=== PATIENT | female | born 1995 | race American Indian/Alaskan Native ===

== ENCOUNTER 2017-02-12 21:04 | Emergency (ER) | payer MEDICAID | END 2017-02-12 22:10 | disposition left against medical advice (07) | LOC: ED 21:04 | DX: O26.891 Other specified pregnancy related conditions, first trimester (principal); R10.9 Unspecified abdominal pain; Z53.21 Procedure and treatment not carried out due to patient leaving prior to being seen by health care provider ==

== ENCOUNTER 2017-05-19 17:26 | Emergency (ER) | payer MEDICAID ==
[2017-05-19 17:36] VITALS: BP 119/75
[2017-05-19] MEDS ORDERED: PROVENTIL IH ONE ×3 (17:43→23:58)
--- NOTE | 2017-05-19 18:00 | Emergency Department Report ---
Chief Complaint: Dyspnea/Respdistress Stated Complaint: 26 WKS ,SOB Time Seen by Provider: 05/19/17 17:42 - HPI History of Present Illness: pt c/o trouble breathing. pt denies hx of asthma, however, it is listed as pmh in pt's chart pt is 26 weeks - ROS Review of Systems: + movement + sob - Exam Vital Signs: Vital Signs 05/19/17 17:34 Temperature 98 F Pulse Rate 98 H Respiratory 18 Rate Blood Pressure 119/75 O2 Sat by Pulse 99 Oximetry Physical Exam: pt looks well, non toxic. pt with ins/ exp wheezing manuelito MSE screening note: Focused history and physical exam performed. Due to findings the following was ordered: [facility] ED Disposition for MSE Condition: Stable
[2017-05-19 21:56] LABS: Basophils % (Auto) 0.4 % (0.0-1.8); Eosinophils % (Auto) 2.9 % (0.0-4.3); Hematocrit 32.1 % (30.3-42.9); Hemoglobin 10.5 gm/dl (10.1-14.3); Mean Corpuscular HGB Conc 33 % (30-34); Mean Corpuscular Volume 79 fl (79-97); Platelet Count 170 K/mm3 (140-440); Red Blood Count 4.07 M/mm3 (3.65-5.03); Red Cell Distribution Width 14.6 % (13.2-15.2); White Blood Count 11.8 K/mm3 (4.5-11.0)
[2017-05-19 21:57] LABS: Mean Corpuscular Hemoglobin 26 pg (28-32)
--- NOTE | 2017-05-19 22:20 | Emergency Department Report ---
ED Asthma HPI - General Chief Complaint: Dyspnea/Respdistress Stated Complaint: 26 WKS ,SOB Time Seen by Provider: 05/19/17 17:42 Source: patient Mode of arrival: Ambulatory Limitations: No Limitations - History of Present Illness Initial Comments: This is a 21-year-old female well-nourished with nontoxic or ill in appearance but presents with wheezing and shortness of breath since Thursday. They stated she has a history of asthma with asthma exacerbations. Patient stated that this exacerbation is worse than her previous. Patient denies any contact with sick. Denies fever, chills, chest pain, stiff neck, headache, nausea, vomiting , dysuria, polyuria, foul odor, abdominal pain, numbness or tingling sensation. Patient stated has been diagnosed with asthma since young age. He denies any past medical history besides asthma. Denies drug allergies. Patient stated is currently 28 weeks . Patient stated has normal follow-up with no abnormalities. Patient denies any about. Denies vaginal bleeding or discharge. Patient stated he feels fetus moving. Denies complications. MD Complaint: "asthma attack", shortness of breath, wheezing -: Gradual, days(s) (2) Asthma History: childhood onset, history of frequent attac, history of prior ED visit Severity: mild Context: none known Associated Symptoms: none. denies: productive cough, dry cough, fever, chest pain, hemoptysis, leg edema, syncope - Related Data Current Asthma Therapy: none Previous Rx's Medication Instructions Recorded Last Taken Type Ferrous Sulfate [Feosol 325 MG tab] 325 mg PO BID #60 tablet 04/06/14 Unknown Rx Ibuprofen [Motrin 600 MG tab] 600 mg PO Q6HR PRN #30 tablet 04/06/14 Unknown Rx Vit-Fe Fumar-FA [ 1 each PO QDAY #30 tablet 04/06/14 Unknown Rx Vitamin] ALBUTEROL Inhaler [ProAir HFA 2 puff IH QID PRN #1 inhalation 05/19/17 Unknown Rx Inhaler] Allergies Allergy/AdvReac Type Severity Reaction Status Date / Time No Known Allergies Allergy Verified 11/17/13 01:19 ED Review of Systems ROS: Stated complaint: 26 WKS ,SOB Other details as noted in HPI Constitutional: denies: chills, fever Eyes: denies: eye pain, eye discharge, vision change ENT: denies: ear pain, throat pain Respiratory: denies: cough, shortness of breath, wheezing Cardiovascular: denies: chest pain, palpitations Endocrine: no symptoms reported Gastrointestinal: denies: abdominal pain, nausea, diarrhea Genitourinary: denies: urgency, dysuria, discharge Musculoskeletal: denies: back pain, joint swelling, arthralgia Skin: denies: rash, lesions Neurological: denies: headache, weakness, paresthesias Psychiatric: denies: anxiety, depression Hematological/Lymphatic: denies: easy bleeding, easy bruising ED Past Medical Hx - Past Medical History Hx Hypertension: No Hx Congestive Heart Failure: No Hx Diabetes: No Hx Deep Vein Thrombosis: No Hx Renal Disease: No Hx Sickle Cell Disease: No Hx Seizures: No Hx Asthma: Yes Hx COPD: No Hx HIV: No - Surgical History Past Surgical History?: No Additional Surgical History: vaginal - Social History Smoking Status: Never Smoker Substance Use Type: None - Medications Home Medications: Home Medications Medication Instructions Recorded Confirmed Last Taken Type Ferrous Sulfate [Feosol 325 MG tab] 325 mg PO BID #60 tablet 04/06/14 Unknown Rx Ibuprofen [Motrin 600 MG tab] 600 mg PO Q6HR PRN #30 tablet 04/06/14 Unknown Rx Vit-Fe Fumar-FA [ 1 each PO QDAY #30 tablet 04/06/14 Unknown Rx Vitamin] ALBUTEROL Inhaler [ProAir HFA 2 puff IH QID PRN #1 inhalation 05/19/17 Unknown Rx Inhaler] ED Physical Exam - General Limitations: No Limitations General appearance: alert, in no apparent distress - Head Head exam: Present: atraumatic, normocephalic, normal inspection - Eye Eye exam: Present: normal appearance, PERRL, EOMI. Absent: scleral icterus, conjunctival injection, nystagmus, periorbital swelling, periorbital tenderness Pupils: Present: normal accommodation - ENT ENT exam: Present: normal exam, normal orophraynx, mucous membranes moist, TM's normal bilaterally, normal external ear exam - Neck Neck exam: Present: normal inspection, full ROM. Absent: tenderness, meningismus, lymphadenopathy, thyromegaly - Respiratory Respiratory exam: Present: normal lung sounds bilaterally, wheezes (manuelito upper and lower lobes). Absent: respiratory distress, rales, rhonchi, stridor, chest wall tenderness, accessory muscle use, decreased breath sounds, prolonged expiratory - Cardiovascular Cardiovascular Exam: Present: regular rate, normal rhythm, normal heart sounds. Absent: bradycardia, tachycardia, irregular rhythm, systolic murmur, diastolic murmur, rubs, gallop - GI/Abdominal GI/Abdominal exam: Present: soft, normal bowel sounds. Absent: distended, tenderness, guarding, rebound, rigid, diminished bowel sounds - Rectal Rectal exam: Present: deferred - Extremities Exam Extremities exam: Present: normal inspection, full ROM, normal capillary refill. Absent: tenderness, pedal edema, joint swelling, calf tenderness - Back Exam Back exam: Present: normal inspection, full ROM. Absent: tenderness, CVA tenderness (R), CVA tenderness (L), muscle spasm, paraspinal tenderness, vertebral tenderness, rash noted - Neurological Exam Neurological exam: Present: alert, oriented X3, CN II-XII intact, normal gait - Psychiatric Psychiatric exam: Present: normal affect, normal mood - Skin Skin exam: Present: warm, dry, intact, normal color. Absent: rash - Other Other exam information: Normal heart rate present at 145. No abd pain. Denies cramping or vaginal bleeding. ED Course Vital Signs 05/19/17 17:34 Temperature 98 F Pulse Rate 98 H Respiratory 18 Rate Blood Pressure 119/75 O2 Sat by Pulse 99 Oximetry - Reevaluation(s) Reevaluation #1: 05/19/17 22:21 Patient received DuoNeb and patient stated she feels much better with shortness of breath subsiding. Patient stated she is able to breathe normally now. Patient is watching TV with no signs of distress noted. - Consultations Consultation #1: 05/19/17 22:24 Dr. Marquez was consulted about patient and elevated WBC. Agrees to the plan of care for CXR and d/c instructions. ED Medical Decision Making - Lab Data Result diagrams: 05/19/17 21:44 - Medical Decision Making Ed course: This is a 21-year-old female that presents with asthma exacerbation 1- abdomen physical exam, patient received a chest x-ray due to elevated white blood cell count and tachycardia. Dr. Marquez has been consulted and agrees to the plan of care and ED as well as discharge instructions. 2- patient received DuoNeb prior to interview. During interview patient stated she feels much better with with shortness of breath subsiding and decreased wheezing. 3- patient received albuterol at the time of discharge and was instructed to follow-up with a primary care doctor in 24 hours. 4- heart tone is normal at 145. 5- at time time of discharge, the patient does not seem toxic or ill in appearance. No acute signs of distress noted. Patient agrees to discharge treatment plan of care. No further questions noted by the patient. Critical care attestation.: If time is entered above; I have spent that time in minutes in the direct care of this critically ill patient, excluding procedure time. ED Disposition Clinical Impression: Asthma exacerbation Disposition: DC-01 TO HOME OR SELFCARE Is pt being admited?: No Does the pt Need Aspirin: No Condition: Stable Instructions: Asthma (ED), Albuterol (By breathing) Additional Instructions: Take albuterol as prescribed as needed. Follow-up with your primary care doctor in 24 hours or if symptoms worsen and unable to breathe return back to emergency room as soon as possible. Prescriptions: ALBUTEROL Inhaler [ProAir HFA Inhaler] 2 puff IH QID PRN #1 inhalation PRN Reason: Shortness Of Breath Referrals: [facility] [Outside] - 3-5 Days [facility] [Outside] - 3-5 Days PRIMARY CAREMD [Primary Care Provider] - 05/20/17 EVAN TIAN JR, MD [Staff Physician] - 05/20/17 Forms: Work/School Release Form(ED)
[2017-05-19 23:03] LABS: Anion Gap 16 mmol/L; Blood Urea Nitrogen 4 mg/dL (7-17); Calcium 8.5 mg/dL (8.4-10.2); Carbon Dioxide 25 mmol/L (22-30); Chloride 101.9 mmol/L (98-107); Glucose 74 mg/dL (65-100); Potassium 3.5 mmol/L (3.6-5.0); Sodium 139 mmol/L (137-145)
--- NOTE | 2017-05-19 23:08 | XRay Report ---
FINAL REPORT EXAM: XR CHEST ROUTINE 2V HISTORY: sob with wheezing TECHNIQUE: 2 views of the chest. PRIORS: None. FINDINGS: The cardiomediastinal silhouette appears normal. The lungs are clear. There is right convex scoliosis centered at the lower thoracic level. IMPRESSION: No evidence of acute cardiopulmonary disease
== END 2017-05-20 01:21 | disposition home or self-care (01) ==
LOC: ED 17:26
DX: O99.512 Diseases of the respiratory system complicating pregnancy, second trimester (principal); J45.901 Unspecified asthma with (acute) exacerbation; Z3A.26 26 weeks gestation of pregnancy
CPT/HCPCS: 36415; 71020; 80048; 84702; 85025; 94640; 99284

== ENCOUNTER 2017-08-17 22:35 | Outpatient (CLI) | payer MEDICAID | END 2017-08-18 00:53 | disposition home or self-care (01) | LOC: TRG 22:35 | PROVIDERS: ATTEND Obstetrics & Gynecology Gynecology | DX: O47.1 False labor at or after 37 completed weeks of gestation (principal); Z3A.39 39 weeks gestation of pregnancy ==

== ENCOUNTER 2017-08-19 23:46 | Outpatient (CLI) | payer MEDICAID ==
[2017-08-20 00:04] VITALS: BP 111/78
[2017-08-20] MEDS ORDERED: LACTATED RINGERS 1,000 ML IV ONE (00:45)
== END 2017-08-20 01:50 | disposition home or self-care (01) ==
LOC: TRG 23:46
PROVIDERS: ATTEND Obstetrics & Gynecology
DX: O62.9 Abnormality of forces of labor, unspecified (principal); O47.1 False labor at or after 37 completed weeks of gestation; O26.893 Other specified pregnancy related conditions, third trimester; M54.9 Dorsalgia, unspecified; Z3A.39 39 weeks gestation of pregnancy
CPT/HCPCS: 59025; 96360; J7120

== ENCOUNTER 2017-08-20 20:16 | Outpatient (CLI) | payer MEDICAID ==
[2017-08-20 20:47] VITALS: BP 114/69
== END 2017-08-20 22:17 | disposition home or self-care (01) ==
LOC: TRG 20:16
PROVIDERS: ATTEND Obstetrics & Gynecology
DX: O47.1 False labor at or after 37 completed weeks of gestation (principal); Z3A.39 39 weeks gestation of pregnancy
CPT/HCPCS: 59025

== ENCOUNTER 2017-08-21 22:42 | Outpatient (CLI) | payer MEDICAID ==
[2017-08-21 22:53] VITALS: BP 120/75
== END 2017-08-21 23:53 | disposition home or self-care (01) ==
LOC: TRG 22:42
PROVIDERS: ATTEND Obstetrics & Gynecology Gynecology
DX: O47.1 False labor at or after 37 completed weeks of gestation (principal); Z3A.39 39 weeks gestation of pregnancy
CPT/HCPCS: 59025

== ENCOUNTER 2017-08-23 13:45 | Inpatient (IN) | payer MEDICAID ==
[2017-08-23] MEDS ORDERED: LACTATED RINGERS 1,000 ML IV ONE (17:07)
--- NOTE | 2017-08-23 19:06 | History and Physical Report ---
History of Present Illness Date of examination: 08/23/17 Date of admission: 08/23/17 13:46 Chief complaint: Painful contractions History of present illness: 21-year-old at 39+6 weeks presents in active labor, she is a [facility] patient. Medical care has been unremarkable per patient she is GBS negative Past History Past Medical History: no pertinent history Past Surgical History: no surgical history REHABILITATION LIAISON History: denies: chlamydia, hepatitis B, hepatitis C, herpes, HIV, trichomonas Social history: single, full code. denies: smoking, alcohol abuse, prescription drug abuse, IV drug use - Obstetrical History Expected Date of Delivery: 08/24/17 Actual Gestation: 39 Week(s) 6 Day(s) : 2 Para: 1 Medications and Allergies Allergies Allergy/AdvReac Type Severity Reaction Status Date / Time No Known Allergies Allergy Verified 11/17/13 01:19 Home Medications Medication Instructions Recorded Confirmed Last Taken Type Ferrous Sulfate [Feosol 325 MG tab] 325 mg PO BID #60 tablet 04/06/14 08/19/17 10:00 Rx Ibuprofen [Motrin 600 MG tab] 600 mg PO Q6HR PRN #30 tablet 04/06/14 1 Day Ago Rx Vit-Fe Fumar-FA [ 1 each PO QDAY #30 tablet 04/06/14 08/20/17 1 Day Ago Rx Vitamin] 1 tablet ALBUTEROL Inhaler [ProAir HFA 2 puff IH QID PRN #1 inhalation 05/19/17 Unknown Rx Inhaler] Review of Systems Constitutional: no fever, no chills Cardiovascular: no chest pain, no syncope, no lightheadedness, no shortness of breath, no dyspnea on exertion, no paroxysmal nocturnal dyspnea, no high blood pressure Respiratory: no shortness of breath, no dyspnea on exertion Gastrointestinal: abdominal pain, no nausea, no vomiting Genitourinary: contractions, no vaginal bleeding, no vaginal discharge, no leakage of fluid - Vital Signs Vital signs: Vital Signs Pulse Pulse Ox 83 100 08/23/17 13:59 08/23/17 13:59 Temp Pulse Resp BP Pulse Ox 98.4 F 91 H 20 114/73 99 08/23/17 18:47 08/23/17 19:00 08/23/17 18:47 08/23/17 18:47 08/23/17 19:00 - Physical Exam Cardiovascular: Regular rate, Normal S1, Normal S2 Lungs: Positive: Clear to auscultation, Normal air movement Abdomen: Positive: normal appearance, soft. Negative: distention, tenderness, guarding, rigidity Genitourinary (Female): Positive: normal external genitalia Uterus: Positive: enlarged (EFW ~ 3400). Negative: tender Extremities: Positive: normal - Obstetrical FHR: category 1 Cervical Dilatation: 4 (per RN ) station: -3 Results All other labs normal. Assessment and Plan A: 21-year-old 001 at 39+6 weeks in active labor -Category 1 tracing P: -Admit -Routine labs -Epidural prn -Anticipate - Patient Problems (1) 39 weeks gestation of Current Visit: Yes Status: Acute (2) Active labor at term Current Visit: Yes Status: Acute
[2017-08-23] MEDS ORDERED: BRETHINE SUB-Q PRN (19:08)
[2017-08-23] MEDS ORDERED: ePHEDrine SULFATE IV PRN ×2 (19:08→20:14)
[2017-08-23] MEDS ORDERED: XYLOCAINE 2% INFILTRATI ONE (19:08)
[2017-08-23] MEDS ORDERED: MINERAL OIL PO PRN (19:08)
[2017-08-23] MEDS ORDERED: SUBLIMAZE IV PRN (19:08)
[2017-08-23] MEDS ORDERED: ZOFRAN IV PRN (19:08)
[2017-08-23] MEDS ORDERED: BRETHINE IVP PRN (19:08)
[2017-08-23 19:38] LABS: Basophils % (Auto) 0.5 % (0.0-1.8); Eosinophils % (Auto) 0.4 % (0.0-4.3); Hematocrit 38.4 % (30.3-42.9); Hemoglobin 12.4 gm/dl (10.1-14.3); Mean Corpuscular HGB Conc 32 % (30-34); Mean Corpuscular Volume 77 fl (79-97); Platelet Count 182 K/mm3 (140-440); Red Blood Count 4.97 M/mm3 (3.65-5.03); Red Cell Distribution Width 18.3 % (13.2-15.2); White Blood Count 13.2 K/mm3 (4.5-11.0)
[2017-08-23 19:41] LABS: Mean Corpuscular Hemoglobin 25 pg (28-32)
[2017-08-23] MEDS ORDERED: ePHEDrine SULFATE ONE (19:50)
[2017-08-23] MEDS: LACTATED RINGERS 1,000 ML IV SCH ×2 (19:56→21:20)
[2017-08-23] MEDS ORDERED: PITOCin/NS 30 UNIT/500ML 30 UNITS/500 ML BAG IV SCH (20:00)
--- NOTE | 2017-08-23 20:13 | Anesthesia Consultation ---
Anesthesia Consult and Med Hx Date of service: 08/23/17 - Airway Anesthetic Teeth Evaluation: Good ROM Head & Neck: Adequate Mental/Hyoid Distance: Adequate Mallampati Class: Class II Intubation Access Assessment: Probably Good - Pulmonary Exam CTA: Yes - Cardiac Exam Cardiac Exam: RRR - Pre-Operative Health Status ASA Pre-Surgery Classification: ASA2 Proposed Anesthetic Plan: Epidural - Pulmonary Hx Asthma: Yes (pt has rescue inhaler, only exacerbation happened early in ) COPD: No Hx Pneumonia: No - Cardiovascular System Hx Hypertension: No - Central Nervous System Hx Seizures: No Hx Psychiatric Problems: No - Endocrine Hx Renal Disease: No Hx End Stage Renal Disease: No Hx Hypothyroidism: No Hx Hyperthyroidism: No - Hematic Hx Anemia: No Hx Sickle Cell Disease: No - Other Systems Hx Alcohol Use: No
[2017-08-23] MEDS ORDERED: NARCAN 2 MG/2 ML IV PRN (20:14)
[2017-08-23] MEDS ORDERED: fentaNYL-BUPIV 2 MCG/ML-0.125% 200 MCG/100 ML BAG EPIDURAL SCH (21:00)
[2017-08-23] MEDS: PITOCin/NS 30 UNIT/500ML 30 UNITS/500 ML BAG IV SCH ×2 (21:17→22:10)
--- NOTE | 2017-08-23 22:04 | Progress Note ---
Assessment and Plan A: 21-year-old 001 at 39+6 weeks in active labor -Category 1 tracing P: -AROMed w/ clear fluid -Continue present care -Anticipate - Patient Problems (1) 39 weeks gestation of Current Visit: Yes Status: Acute (2) Active labor at term Current Visit: Yes Status: Acute Subjective - Subjective Date of service: 08/23/17 Interval history: 21-year-old at 39+6 weeks presents in active labor, she is a [facility] patient. Medical care has been unremarkable per patient she is GBS negative Patient reports: new complaints, contractions Objective - Vital Signs Vital Signs: Vital Signs - 12hr 08/23/17 08/23/17 08/23/17 13:59 14:00 14:04 Temperature Pulse Rate 83 84 82 Respiratory Rate Blood Pressure 117/76 Blood Pressure [Left] O2 Sat by Pulse 100 99 Oximetry 08/23/17 08/23/17 08/23/17 14:09 14:14 14:19 Temperature Pulse Rate 75 78 79 Respiratory Rate Blood Pressure Blood Pressure [Left] O2 Sat by Pulse 98 98 99 Oximetry 08/23/17 08/23/17 08/23/17 14:24 14:29 14:34 Temperature Pulse Rate 79 80 79 Respiratory Rate Blood Pressure Blood Pressure [Left] O2 Sat by Pulse 99 99 99 Oximetry 08/23/17 08/23/17 08/23/17 14:39 14:42 18:47 Temperature 98.4 F Pulse Rate 80 83 94 H Respiratory 20 Rate Blood Pressure Blood Pressure 114/73 [Left] O2 Sat by Pulse 100 81 L 97 Oximetry 08/23/17 08/23/17 08/23/17 19:00 19:05 19:10 Temperature Pulse Rate 91 H 101 H 90 Respiratory Rate Blood Pressure Blood Pressure [Left] O2 Sat by Pulse 99 100 99 Oximetry 08/23/17 08/23/17 08/23/17 19:15 19:20 19:27 Temperature Pulse Rate 96 H 84 83 Respiratory Rate Blood Pressure Blood Pressure [Left] O2 Sat by Pulse 99 100 100 Oximetry 08/23/17 08/23/17 08/23/17 19:30 19:32 19:40 Temperature 98.3 F Pulse Rate 88 89 Respiratory 18 Rate Blood Pressure 124/68 Blood Pressure [Left] O2 Sat by Pulse 100 Oximetry 08/23/17 08/23/17 08/23/17 19:41 19:46 19:51 Temperature Pulse Rate 92 H 84 85 Respiratory Rate Blood Pressure Blood Pressure [Left] O2 Sat by Pulse 99 100 100 Oximetry 08/23/17 08/23/17 08/23/17 19:56 19:59 20:01 Temperature Pulse Rate 100 H 102 H 100 H Respiratory Rate Blood Pressure 123/67 116/61 Blood Pressure [Left] O2 Sat by Pulse 100 100 Oximetry 08/23/17 08/23/17 08/23/17 20:03 20:05 20:06 Temperature Pulse Rate 109 H 97 H 96 H Respiratory Rate Blood Pressure 118/61 127/64 Blood Pressure [Left] O2 Sat by Pulse 100 Oximetry 08/23/17 08/23/17 08/23/17 20:07 20:09 20:11 Temperature Pulse Rate 88 88 86 Respiratory Rate Blood Pressure 119/64 116/56 130/62 Blood Pressure [Left] O2 Sat by Pulse Oximetry 08/23/17 08/23/17 08/23/17 20:13 20:15 20:17 Temperature Pulse Rate 88 92 H 87 Respiratory Rate Blood Pressure 121/66 112/60 113/59 Blood Pressure [Left] O2 Sat by Pulse Oximetry 08/23/17 08/23/17 08/23/17 20:19 20:23 20:25 Temperature Pulse Rate 97 H 109 H 101 H Respiratory Rate Blood Pressure 115/59 Blood Pressure [Left] O2 Sat by Pulse 100 76 L Oximetry 08/23/17 08/23/17 08/23/17 20:27 20:28 20:32 Temperature Pulse Rate 89 90 91 H Respiratory Rate Blood Pressure 130/57 113/60 Blood Pressure [Left] O2 Sat by Pulse 97 Oximetry 08/23/17 08/23/17 08/23/17 20:33 20:38 20:41 Temperature Pulse Rate 93 H 92 H 62 Respiratory Rate Blood Pressure Blood Pressure [Left] O2 Sat by Pulse 99 100 75 L Oximetry 08/23/17 08/23/17 08/23/17 20:43 20:49 20:52 Temperature Pulse Rate 93 H 96 H 91 H Respiratory Rate Blood Pressure Blood Pressure [Left] O2 Sat by Pulse 99 99 74 L Oximetry 08/23/17 08/23/17 08/23/17 20:54 20:59 21:04 Temperature Pulse Rate 99 H 90 93 H Respiratory Rate Blood Pressure 137/66 Blood Pressure [Left] O2 Sat by Pulse 100 100 100 Oximetry 08/23/17 08/23/17 08/23/17 21:05 21:09 21:13 Temperature Pulse Rate 93 H 90 98 H Respiratory Rate Blood Pressure Blood Pressure [Left] O2 Sat by Pulse 51 L 100 90 Oximetry 08/23/17 08/23/17 08/23/17 21:14 21:18 21:19 Temperature Pulse Rate 95 H 95 H Respiratory Rate Blood Pressure Blood Pressure [Left] O2 Sat by Pulse 86 68 L 67 L Oximetry 08/23/17 08/23/17 08/23/17 21:20 21:34 21:48 Temperature Pulse Rate 90 83 86 Respiratory Rate Blood Pressure 141/64 103/58 112/62 Blood Pressure [Left] O2 Sat by Pulse Oximetry - Exam FHR: category 1 Cervical Dilatation: 7 station: -2 - Labs Labs: Abnormal Labs 08/23/17 19:00 WBC 13.2 H MCV 77 L MCH 25 L RDW 18.3 H [place] % (Auto) 7.9 H Bryan # 1.0 H Seg Neutrophils % 77.0 H Seg Neutrophils # 10.1 H Laboratory Results - last 24 hr 08/23/17 08/23/17 19:00 19:25 WBC 13.2 H RBC 4.97 Hgb 12.4 Hct 38.4 MCV 77 L MCH 25 L MCHC 32 RDW 18.3 H Plt Count 182 Lymph % (Auto) 14.2 [place] % (Auto) 7.9 H Eos % (Auto) 0.4 Baso % (Auto) 0.5 Lymph # 1.9 Bryan # 1.0 H Eos # 0.1 Baso # 0.1 Seg Neutrophils % 77.0 H Seg Neutrophils # 10.1 H Blood Type O POSITIVE Antibody Screen Negative
--- NOTE | 2017-08-24 00:03 | Progress Note ---
Assessment and Plan A: 21-year-old 001 at 39+6 weeks in active labor -Category 1 tracing P: -Continue present care -Anticipate - Patient Problems (1) 39 weeks gestation of Current Visit: Yes Status: Acute (2) Active labor at term Current Visit: Yes Status: Acute Subjective - Subjective Date of service: 08/24/17 Interval history: fully dilated Patient reports: new complaints, contractions Objective - Vital Signs Vital Signs: Vital Signs - 12hr 08/23/17 08/23/17 08/23/17 13:59 14:00 14:04 Temperature Pulse Rate 83 84 82 Respiratory Rate Blood Pressure 117/76 Blood Pressure [Left] O2 Sat by Pulse 100 99 Oximetry 08/23/17 08/23/17 08/23/17 14:09 14:14 14:19 Temperature Pulse Rate 75 78 79 Respiratory Rate Blood Pressure Blood Pressure [Left] O2 Sat by Pulse 98 98 99 Oximetry 08/23/17 08/23/17 08/23/17 14:24 14:29 14:34 Temperature Pulse Rate 79 80 79 Respiratory Rate Blood Pressure Blood Pressure [Left] O2 Sat by Pulse 99 99 99 Oximetry 08/23/17 08/23/17 08/23/17 14:39 14:42 18:47 Temperature 98.4 F Pulse Rate 80 83 94 H Respiratory 20 Rate Blood Pressure Blood Pressure 114/73 [Left] O2 Sat by Pulse 100 81 L 97 Oximetry 08/23/17 08/23/17 08/23/17 19:00 19:05 19:10 Temperature Pulse Rate 91 H 101 H 90 Respiratory Rate Blood Pressure Blood Pressure [Left] O2 Sat by Pulse 99 100 99 Oximetry 08/23/17 08/23/17 08/23/17 19:15 19:20 19:27 Temperature Pulse Rate 96 H 84 83 Respiratory Rate Blood Pressure Blood Pressure [Left] O2 Sat by Pulse 99 100 100 Oximetry 08/23/17 08/23/17 08/23/17 19:30 19:32 19:40 Temperature 98.3 F Pulse Rate 88 89 Respiratory 18 Rate Blood Pressure 124/68 Blood Pressure [Left] O2 Sat by Pulse 100 Oximetry 08/23/17 08/23/17 08/23/17 19:41 19:46 19:51 Temperature Pulse Rate 92 H 84 85 Respiratory Rate Blood Pressure Blood Pressure [Left] O2 Sat by Pulse 99 100 100 Oximetry 08/23/17 08/23/17 08/23/17 19:56 19:59 20:01 Temperature Pulse Rate 100 H 102 H 100 H Respiratory Rate Blood Pressure 123/67 116/61 Blood Pressure [Left] O2 Sat by Pulse 100 100 Oximetry 08/23/17 08/23/17 08/23/17 20:03 20:05 20:06 Temperature Pulse Rate 109 H 97 H 96 H Respiratory Rate Blood Pressure 118/61 127/64 Blood Pressure [Left] O2 Sat by Pulse 100 Oximetry 08/23/17 08/23/17 08/23/17 20:07 20:09 20:11 Temperature Pulse Rate 88 88 86 Respiratory Rate Blood Pressure 119/64 116/56 130/62 Blood Pressure [Left] O2 Sat by Pulse Oximetry 08/23/17 08/23/17 08/23/17 20:13 20:15 20:17 Temperature Pulse Rate 88 92 H 87 Respiratory Rate Blood Pressure 121/66 112/60 113/59 Blood Pressure [Left] O2 Sat by Pulse Oximetry 08/23/17 08/23/17 08/23/17 20:19 20:23 20:25 Temperature Pulse Rate 97 H 109 H 101 H Respiratory Rate Blood Pressure 115/59 Blood Pressure [Left] O2 Sat by Pulse 100 76 L Oximetry 08/23/17 08/23/17 08/23/17 20:27 20:28 20:32 Temperature Pulse Rate 89 90 91 H Respiratory Rate Blood Pressure 130/57 113/60 Blood Pressure [Left] O2 Sat by Pulse 97 Oximetry 08/23/17 08/23/17 08/23/17 20:33 20:38 20:41 Temperature Pulse Rate 93 H 92 H 62 Respiratory Rate Blood Pressure Blood Pressure [Left] O2 Sat by Pulse 99 100 75 L Oximetry 08/23/17 08/23/17 08/23/17 20:43 20:49 20:52 Temperature Pulse Rate 93 H 96 H 91 H Respiratory Rate Blood Pressure Blood Pressure [Left] O2 Sat by Pulse 99 99 74 L Oximetry 08/23/17 08/23/17 08/23/17 20:54 20:59 21:04 Temperature Pulse Rate 99 H 90 93 H Respiratory Rate Blood Pressure 137/66 Blood Pressure [Left] O2 Sat by Pulse 100 100 100 Oximetry 08/23/17 08/23/17 08/23/17 21:05 21:09 21:13 Temperature Pulse Rate 93 H 90 98 H Respiratory Rate Blood Pressure Blood Pressure [Left] O2 Sat by Pulse 51 L 100 90 Oximetry 08/23/17 08/23/17 08/23/17 21:14 21:18 21:19 Temperature Pulse Rate 95 H 95 H Respiratory Rate Blood Pressure Blood Pressure [Left] O2 Sat by Pulse 86 68 L 67 L Oximetry 08/23/17 08/23/17 08/23/17 21:20 21:34 21:48 Temperature Pulse Rate 90 83 86 Respiratory Rate Blood Pressure 141/64 103/58 112/62 Blood Pressure [Left] O2 Sat by Pulse Oximetry 08/23/17 08/23/17 08/23/17 22:08 22:19 22:34 Temperature 98.3 F Pulse Rate 97 H 91 H Respiratory Rate Blood Pressure 119/53 110/57 Blood Pressure [Left] O2 Sat by Pulse Oximetry 08/23/17 08/23/17 08/23/17 22:48 23:03 23:20 Temperature Pulse Rate 110 H 108 H 102 H Respiratory Rate Blood Pressure 110/58 108/58 119/65 Blood Pressure [Left] O2 Sat by Pulse Oximetry 08/23/17 08/23/17 23:35 23:49 Temperature Pulse Rate 86 97 H Respiratory Rate Blood Pressure 108/57 137/60 Blood Pressure [Left] O2 Sat by Pulse Oximetry - Exam FHR: category 1 Cervical Dilatation: 10 station: 0 - Labs Labs: Abnormal Labs 08/23/17 19:00 WBC 13.2 H MCV 77 L MCH 25 L RDW 18.3 H [place] % (Auto) 7.9 H [place] # 1.0 H Seg Neutrophils % 77.0 H Seg Neutrophils # 10.1 H Laboratory Results - last 24 hr 08/23/17 08/23/17 19:00 19:25 WBC 13.2 H RBC 4.97 Hgb 12.4 Hct 38.4 MCV 77 L MCH 25 L MCHC 32 RDW 18.3 H Plt Count 182 Lymph % (Auto) 14.2 [place] % (Auto) 7.9 H Eos % (Auto) 0.4 Baso % (Auto) 0.5 Lymph # 1.9 [place] # 1.0 H Eos # 0.1 Baso # 0.1 Seg Neutrophils % 77.0 H Seg Neutrophils # 10.1 H Blood Type O POSITIVE Antibody Screen Negative
[2017-08-24] MEDS: PITOCin/NS 20 UNIT/1000ML DRIP 20 UNITS/1,000 ML BAG IV SCH ×2 (01:26→03:02)
[2017-08-24] MEDS ORDERED: METHERGINE IM ONE (01:30)
--- NOTE | 2017-08-24 01:50 | Procedure Note ---
OB Delivery Note - Delivery Date of Delivery: 08/24/17 Surgeon: YASMIN DONOVAN Estimated blood loss: 300cc - Vaginal Delivery presentation: vertex Delivery position: OA Delivery induction: none Delivery augmentation: rupture of membranes, pitocin Delivery monitor: external FHT, external uterine Route of delivery: Delivery placenta: spontaneous Delivery cord: 3 umbilical vessels Episiotomy: none Delivery laceration: 2nd degree (Unsure due to vulva edema) Anesthesia: epidural Delivery comments: Normal vaginal delivery over intact perineum. Patient's vulva markedly swollen , 2nd degree midline laceration could not be repaired due to above. Patient with noted oozing from suture sites. Vagina packed with vag pack and Aguilera placed. We'll remove vag pack later in a.m. - A at 1 minute: 8 at 5 minutes: 9 Infant Gender: Male (time of delivery was 1:20 AM, infant weight 6 lbs. 12 oz. or 3067 g)
[2017-08-24] MEDS ORDERED: DULCOLAX PR PRN (01:52)
[2017-08-24] MEDS ORDERED: PHENERGAN PR PRN (01:52)
[2017-08-24] MEDS ORDERED: BENADRYL PO PRN (01:52)
[2017-08-24] MEDS ORDERED: TYLENOL PO PRN (01:52)
[2017-08-24] MEDS ORDERED: ZOFRAN IV PRN (01:52)
[2017-08-24] MEDS ORDERED: LANSINOH TP PRN (01:52)
[2017-08-24] MEDS ORDERED: MILK OF MAGNESIA PO PRN (01:52)
[2017-08-24] MEDS ORDERED: DERMOPLAST TP PRN (01:52)
[2017-08-24] MEDS ORDERED: ANUCORT-HC PR PRN (01:52)
[2017-08-24] MEDS ORDERED: NORCO 5/325 PO PRN (01:52)
[2017-08-24] MEDS ORDERED: METHERGINE IM PRN (01:52)
[2017-08-24] MEDS ORDERED: PHENERGAN PO PRN (01:52)
[2017-08-24] MEDS ORDERED: SODIUM CHLORIDE FLUSH SYRINGE 10 ML IV NR (02:00)
[2017-08-24 02:09] LABS: Urine Drugs of Abuse Note Disclamer
[2017-08-24] MEDS ORDERED: PITOCin/NS 20 UNIT/1000ML DRIP 20,000 MILLIUNITS/1,000 ML BAG IV ONE (02:41)
[2017-08-24] MEDS: TUCKS PAD TP PRN (03:55)
[2017-08-24] MEDS: SENOKOT S PO SCH (06:01)
[2017-08-24] MEDS: MOTRIN PO SCH ×3 (06:04→18:14)
[2017-08-24] MEDS: FEOSOL PO SCH ×2 (10:01→22:27)
[2017-08-24] MEDS: PRENATAL VITAMIN PO SCH (10:01)
[2017-08-24] MEDS: COLACE PO SCH ×2 (10:13→22:27)
--- NOTE | 2017-08-24 10:28 | Event Note ---
Date: 08/24/17 Vaginal pack removed without difficulty. Aguilera also removed. Pt feeling well without complaints.
[2017-08-24 14:12] LABS: Hematocrit 36.4 % (30.3-42.9); Hemoglobin 11.3 gm/dl (10.1-14.3)
[2017-08-25] MEDS: MOTRIN PO SCH ×4 (00:14→17:50)
[2017-08-25] MEDS ORDERED: M-M-R II VACCINE SUB-Q ONE (06:00)
[2017-08-25] MEDS ORDERED: BOOSTRIX IM ONE (06:05)
--- NOTE | 2017-08-25 08:38 | Progress Note ---
Assessment and Plan - Patient Problems (1) Status post normal vaginal delivery Onset Date: 08/25/17 Current Visit: No Status: Resolved Plan to address problem: A: S/P - PPD #1 Doing well P: May go home tomorrow Subjective - Subjective Date of service: 08/25/17 Principal diagnosis: s/p - PPD #1 Interval history: Pt is feeling well without complaints. Bleeding improved. Patient reports: appetite normal, voiding normally, pain well controlled, flatus , ambulating normally [place]: doing well, bottle feeding Objective - Vital Signs Latest vital signs: Vital Signs Temp Pulse Resp BP 08/25/17 05:27 16 08/25/17 01:14 16 08/25/17 00:14 16 08/24/17 23:31 97.6 F 83 18 109/70 08/24/17 16:00 98.4 F 72 18 100/56 08/24/17 12:14 98.8 F 80 18 104/71 Intake and Output 08/24/17 08/25/17 08/25/17 22:59 06:59 14:59 Intake Total 240 360 Output Total 800 Balance -560 360 Intake: Oral 240 Intake, Free Water 360 Output: Urine 800 Void 800 Other: Total, Intake Amount 240 Total, Output Amount 800 # Voids Void 1 - Exam Breasts: Present: deferred Cardiovascular: Present: Regular rate Lungs: Present: Clear to auscultation Abdomen: Present: normal appearance, soft Uterus: Present: normal, firm, fundal height below umbilicus Extremities: Present: normal - Labs Labs: Laboratory Tests 08/23/17 08/23/17 08/24/17 19:00 19:25 02:00 WBC 13.2 H RBC 4.97 Hgb 12.4 Hct 38.4 MCV 77 L MCH 25 L MCHC 32 RDW 18.3 H Plt Count 182 Lymph % (Auto) 14.2 Reagan % (Auto) 7.9 H Eos % (Auto) 0.4 Baso % (Auto) 0.5 Lymph # 1.9 Reagan # 1.0 H Eos # 0.1 Baso # 0.1 Seg Neutrophils % 77.0 H Seg Neutrophils # 10.1 H Urine Opiates Screen Presumptive negative Urine Methadone Screen Presumptive negative Ur Barbiturates Screen Presumptive negative Ur Phencyclidine Scrn Presumptive negative Ur Amphetamines Screen Presumptive negative U Benzodiazepines Scrn Presumptive negative Urine Cocaine Screen Presumptive negative U Marijuana (THC) Screen Presumptive negative Drugs of Abuse Note Disclamer Blood Type O POSITIVE Antibody Screen Negative 08/24/17 13:38 WBC RBC Hgb 11.3 Hct 36.4 MCV MCH MCHC RDW Plt Count Lymph % (Auto) Reagan % (Auto) Eos % (Auto) Baso % (Auto) Lymph # Reagan # Eos # Baso # Seg Neutrophils % Seg Neutrophils # Urine Opiates Screen Urine Methadone Screen Ur Barbiturates Screen Ur Phencyclidine Scrn Ur Amphetamines Screen U Benzodiazepines Scrn Urine Cocaine Screen U Marijuana (THC) Screen Drugs of Abuse Note Blood Type Antibody Screen
--- NOTE | 2017-08-25 09:49 | Discharge Summary ---
Providers - Providers Date of Admission: 08/23/17 13:46 Date of discharge: 08/26/17 Attending physician: YASMIN DONOVAN Primary care physician: YASMIN DONOVAN Hospitalization Reason for admission: active labor, IUP at term Delivery: Episiotomy: none Laceration: vaginal side wall, 2nd degree Other procedures: none complications: none Discharge diagnosis: IUP at term delivered baby: male Hospital course: Unremarkable. Condition at discharge: Good Disposition: [id number] TO HOME OR SELFCARE - Discharge Diagnoses (1) Status post normal vaginal delivery Status: Resolved Plan - Discharge Medications Prescriptions: Ibuprofen [Motrin 600 MG tab] 600 mg PO Q8H PRN #30 tablet PRN Reason: Pain Multivitamin with Iron [Multivitamins with Iron] 1 each PO DAILY #30 tablet - Provider Discharge Summary Activity: routine, no sex for 6 weeks, no heavy lifting 4 weeks, no strenuous exercise Diet: routine Instructions: routine Additional instructions: [] Smoking cessation referral if applicable(refer to patient education folder for contact #) [] Refer to [facility]'s [facility] Booklet Call your doctor immediately for: * Fever > 100.5 * Heavy vaginal bleeding ( >1 pad per hour) * Severe persistent headache * Shortness of breath * Reddened, hot, painful area to leg or breast * Drainage or odor from incision. * Keep incision clean and dry at all times and follow doctor's instructions regarding bathing/showering - Follow up plan Follow up: YASMIN DONOVAN MD [Primary Care Provider] - 14 Days
[2017-08-25] MEDS: COLACE PO SCH (12:06)
[2017-08-25] MEDS: FEOSOL PO SCH (12:08)
[2017-08-25] MEDS: PRENATAL VITAMIN PO SCH (12:08)
[2017-08-25] MEDS: SENOKOT S PO SCH (17:50)
[2017-08-26] MEDS: MOTRIN PO SCH ×2 (00:08→05:27)
[2017-08-26] MEDS: COLACE PO SCH ×2 (00:08→10:26)
[2017-08-26] MEDS: FEOSOL PO SCH ×2 (00:09→10:25)
[2017-08-26] MEDS: SENOKOT S PO SCH ×2 (01:33→05:28)
[2017-08-26] MEDS: TUCKS PAD TP PRN (05:28)
[2017-08-26] MEDS: PRENATAL VITAMIN PO SCH (10:26)
[2017-08-26 15:59] VITALS: BP 118/76
== END 2017-08-26 15:10 | disposition home or self-care (01) | DRG 775 ==
LOC: TRG 13:45 → LD 13:46 → TRG 13:46 → OB 08-24 03:25
PROVIDERS: ADMIT Obstetrics & Gynecology Gynecology; ATTEND Obstetrics & Gynecology Gynecology
PROC: 10E0XZZ Delivery of Products of Conception, External Approach (ICD-10-PCS; principal; 2017-08-24)
PROC: 0KQM0ZZ Repair Perineum Muscle, Open Approach (ICD-10-PCS; 2017-08-24)
PROC: 3E0R3BZ Introduction of Anesthetic Agent into Spinal Canal, Percutaneous Approach (ICD-10-PCS; 2017-08-24)
PROC: 00HU33Z Insertion of Infusion Device into Spinal Canal, Percutaneous Approach (ICD-10-PCS; 2017-08-24)
PROC: 3E0234Z Introduction of Serum, Toxoid and Vaccine into Muscle, Percutaneous Approach (ICD-10-PCS; 2017-08-25)
DX: O70.1 Second degree perineal laceration during delivery (principal); Z37.0 Single live birth; Z3A.39 39 weeks gestation of pregnancy; Z79.899 Other long term (current) drug therapy; Z23 Encounter for immunization
CPT/HCPCS: 36415; 80307; 85014; 85018; 85025; 86850; 86900; 86901; 90471; 90715; 99211; A6250; G0463; J2210; J2590; J3010; J7120